=== PATIENT | male | born 1975 | race African-American/Black ===

== ENCOUNTER 2025-01-14 11:28 | Inpatient (IN) | payer OTHER ==
[2025-01-14] VITALS (27 sets, daily range): BP systolic 110–137; BP diastolic 73–91; PULSE 59–79; RESP 12–24; TEMP 36.4–37.1; O2SAT 96–98
[~2025-01-14] VITALS: Ht 185.4 cm; Wt 90.4 kg
[2025-01-14] MEDS ORDERED: HEPARIN 1000 UNITS/ML 10ML ONE ×2 (11:48→12:29)
[2025-01-14] MEDS ORDERED: LIDOCAINE HCL 1% 20ML VIAL ONE (11:48)
[2025-01-14] MEDS ORDERED: EPINEPHRINE 0.1MG/ML (1:10,000) 10ML SYR ONE (11:48)
[2025-01-14] MEDS ORDERED: HEPARIN 25,000 UNITS PREMIX 250 ML IV SCH (12:00)
[2025-01-14] MEDS ORDERED: HEPARIN BOLUS PRN aPTT 30-44 IV ×2 (12:00→18:00)
[2025-01-14] MEDS ORDERED: MIDAZOLAM HCL 2 MG/2 ML VIAL ONE (12:00)
[2025-01-14] MEDS ORDERED: FENTANYL CITRATE/PF 50MCG/ML 2ML VIAL ONE (12:00)
[2025-01-14] MEDS ORDERED: HEPARIN 60 UNITS/KG BOLUS IV SCH (12:00)
[2025-01-14] MEDS ORDERED: HEPARIN 25,000 UNITS PREMIX 250 ML IV PRN (12:00)
[2025-01-14] MEDS ORDERED: HEPARIN BOLUS PRN aPTT <30 IV ×2 (12:00→18:00)
[2025-01-14] MEDS ORDERED: ATROPINE SULFATE 1MG/10ML SYR ONE (12:05)
[2025-01-14] MEDS ORDERED: EPTIFIBATIDE 2 MG/ML 10ML VIAL IV ONE (12:33)
[2025-01-14 12:38] LABS: BASOPHILS % 0.3 % (0.0-2.0); EOSINOPHILS % 0.6 % (0.0-5.0); HEMATOCRIT. 43.2 % (42.0-52.0); HEMOGLOBIN. 14.7 g/dL (14.0-18.0); LYMPHOCYTES % 11.7 % (20.0-50.0); MEAN CORPUSCULAR HEMOGLOBIN 31.1 pg (28.0-32.0); MEAN CORPUSCULAR HGB CONC 34.1 g/dL (31.0-37.0); MEAN CORPUSCULAR VOLUME 91.2 fL (80.0-94.0); MEAN PLATELET VOLUME 9.1 fl (7.4-10.4); MONOCYTES % 8.1 % (2.0-8.0); NEUTROPHILS % 79.3 % (40.0-76.0); PLATELET 257 x1000/uL (130-400); RED BLOOD CELL COUNT 4.74 mill/uL (4.7-6.1); RED CELL DISTRIBUTION WIDTH 13.4 % (11.6-14.6); WHITE BLOOD COUNT 11.9 x1000/uL (4.5-11.0)
[2025-01-14] MEDS ORDERED: CLOPIDOGREL 75MG TABLET ONE (12:46)
[2025-01-14 12:48] LABS: INR 0.9; PROTHROMBIN TIME 10.2 sec (9.6-11.0)
[2025-01-14] MEDS ORDERED: IODIXANOL 320 MG/ML 150ML BOTTLE IV ONE (12:54)
[2025-01-14 12:55] LABS: CHLORIDE 103 mEq/L (98-107); POTASSIUM 3.8 mEq/L (3.5-5.1); SODIUM 137 mEq/L (136-145)
[2025-01-14 12:56] LABS: CALCIUM 9.5 mg/dL (8.7-10.4); CARBON DIOXIDE 22 mEq/L (21-32)
[2025-01-14 13:01] LABS: GLUCOSE 157 mg/dL (70-105); UREA NITROGEN BLOOD 8 mg/dL (9-23)
[2025-01-14] MEDS ORDERED: TICAGRELOR 90 MG TABLET PO ONE ×2 (13:13→13:27)
[2025-01-14 13:20] LABS: TROPONIN I HIGH SENSITIVITY 86 ng/L (3.0-53)
[2025-01-14] MEDS ORDERED: IPRATROPIUM/ALBUTEROL 0.5-3(2.5)MG/3ML NEB HHN PRN (14:00)
[2025-01-14] MEDS ORDERED: DOCUSATE SODIUM 100MG CAPSULE PO PRN (14:00)
[2025-01-14] MEDS ORDERED: ACETAMINOPHEN 325MG TABLET PO PRN ×2 (14:00)
[2025-01-14] MEDS ORDERED: GUAIFENESIN 200MG/10ML SUGAR FREE UDC PO PRN (14:00)
[2025-01-14] MEDS ORDERED: ONDANSETRON HCL 4MG/2ML INJ IV PRN (14:00)
[2025-01-14] MEDS ORDERED: MAGNESIUM/ALUMINUM HYDROXIDE/SIMETHICONE 30ML UDC PO PRN (14:00)
[2025-01-14] MEDS ORDERED: CLONIDINE 0.1MG TABLET PO PRN (14:00)
[2025-01-14] MEDS ORDERED: DEXTROSE 50% WATER 50ML SYRINGE IV PRN (14:00)
[2025-01-14] MEDS ORDERED: NALOXONE HCL 0.4MG/ML VIAL IV PRN (15:00)
[2025-01-14] MEDS ORDERED: CARVEDILOL 3.125 MG TABLET PO SCH (15:00)
[2025-01-14] MEDS ORDERED: LISINOPRIL 2.5MG TABLET PO SCH (15:00)
[2025-01-14] MEDS: TICAGRELOR 90 MG TABLET PO SCH (15:52)
[2025-01-14] MEDS: PANTOPRAZOLE SODIUM 40 MG/VIAL IV SCH (15:55)
[2025-01-14] MEDS: HYDROCODONE/ACETAMINOPHEN 5/325MG TABLET PO PRN (15:55)
[2025-01-14] MEDS: BLOOD SUGAR DIAGNOSTIC STRIP TEST SCH (17:44)
[2025-01-14] MEDS: LISINOPRIL 2.5MG TABLET PO SCH (17:48)
[2025-01-14] MEDS: CARVEDILOL 3.125 MG TABLET PO SCH (17:48)
[2025-01-14] MEDS: INSULIN LISPRO 100 UNITS/ML SUBCUT SCH (17:48)
[2025-01-14 19:27] LABS: CREATINE KINASE 1129 IU/L (46-171)
[2025-01-14 19:53] LABS: TROPONIN I HIGH SENSITIVITY 45102 ng/L (3.0-53)
[2025-01-14] MEDS: ATORVASTATIN CALCIUM 40MG TABLET PO SCH (21:09)
[2025-01-14 23:59] LABS: CREATINE KINASE 1041 IU/L (46-171)
[2025-01-15] VITALS (75 sets, daily range): BP systolic 112–156; BP diastolic 66–116; PULSE 55–76; RESP 10–23; TEMP 36.8; O2SAT 96–100
[2025-01-15 00:48] LABS: TROPONIN I HIGH SENSITIVITY > 25000 ng/L (3.0-53)
[2025-01-15 06:24] LABS: BASOPHILS % 0.2 % (0.0-2.0); EOSINOPHILS % 0.9 % (0.0-5.0); HEMATOCRIT. 38.4 % (42.0-52.0); HEMOGLOBIN. 13.4 g/dL (14.0-18.0); LYMPHOCYTES % 10.1 % (20.0-50.0); MEAN CORPUSCULAR HEMOGLOBIN 32.4 pg (28.0-32.0); MEAN CORPUSCULAR HGB CONC 34.9 g/dL (31.0-37.0); MEAN CORPUSCULAR VOLUME 92.8 fL (80.0-94.0); MONOCYTES % 10.2 % (2.0-8.0); NEUTROPHILS % 78.6 % (40.0-76.0); PLATELET 200 x1000/uL (130-400); RED BLOOD CELL COUNT 4.14 mill/uL (4.7-6.1); RED CELL DISTRIBUTION WIDTH 13.4 % (11.6-14.6); WHITE BLOOD COUNT 8.9 x1000/uL (4.5-11.0)
[2025-01-15 06:55] LABS: CHLORIDE 104 mEq/L (98-107); SODIUM 137 mEq/L (136-145)
[2025-01-15 06:56] LABS: CARBON DIOXIDE 24 mEq/L (21-32)
[2025-01-15 07:01] LABS: CREATININE 0.9 mg/dL (0.6-1.3); GLUCOSE 106 mg/dL (70-105); TRIGLYCERIDE 322 mg/dL (0-150); UREA NITROGEN BLOOD 8 mg/dL (9-23)
[2025-01-15 07:02] LABS: ALANINE AMINOTRANSFERASE 37 IU/L (10-49); ASPARTATE AMINOTRANSFERASE 128 IU/L (<34); LDL CHOLESTEROL 139 mg/dL (5-100)
[2025-01-15 07:03] LABS: ALBUMIN 3.8 g/dL (3.2-4.8); BILIRUBIN TOTAL 1.1 mg/dL (0.1-1.0); CHOLESTEROL 226 mg/dL (<200); HDL CHOLESTEROL 34 mg/dL (>55); PROTEIN TOTAL 6.6 g/dL (6.0-8.3)
[2025-01-15 07:05] LABS: T4 FREE 1.08 ng/dL (0.89-1.76); THYROID STIMULATING HORMONE 1.97 uIU/mL (0.55-4.78)
[2025-01-15] MEDS: ASPIRIN 81MG TABLET PO SCH (08:36)
[2025-01-15] MEDS ORDERED: PANTOPRAZOLE SODIUM 40 MG/VIAL IV SCH (09:00)
[2025-01-15 18:57] LABS: HEMATOCRIT 42.5 % (42.0-52.0); HEMOGLOBIN 14.4 g/dL (14.0-18.0); MEAN CORPUSCULAR HGB CONC 33.9 g/dL (31.0-37.0); MEAN CORPUSCULAR VOLUME 91.5 fL (80.0-94.0); PLATELET 206 x1000/uL (130-400); RED BLOOD CELL COUNT 4.64 mill/uL (4.7-6.1); RED CELL DISTRIBUTION WIDTH 13.5 % (11.6-14.6); WHITE BLOOD COUNT 7.9 x1000/uL (4.5-11.0)
[2025-01-15 19:07] LABS: CHLORIDE 105 mEq/L (98-107); POTASSIUM 3.8 mEq/L (3.5-5.1); SODIUM 140 mEq/L (136-145)
[2025-01-15 19:08] LABS: CALCIUM 9.4 mg/dL (8.7-10.4); CARBON DIOXIDE 25 mEq/L (21-32)
[2025-01-15 19:13] LABS: CREATININE 0.9 mg/dL (0.6-1.3); GLUCOSE 93 mg/dL (70-105); TRIGLYCERIDE 317 mg/dL (0-150); UREA NITROGEN BLOOD 7 mg/dL (9-23)
[2025-01-15 19:14] LABS: LDL CHOLESTEROL 143 mg/dL (5-100)
[2025-01-15 19:15] LABS: ALANINE AMINOTRANSFERASE 39 IU/L (10-49); ALBUMIN 4.3 g/dL (3.2-4.8); ASPARTATE AMINOTRANSFERASE 99 IU/L (<34); BILIRUBIN TOTAL 1.1 mg/dL (0.1-1.0); CHOLESTEROL 237 mg/dL (<200); HDL CHOLESTEROL 35 mg/dL (>55); PROTEIN TOTAL 7.4 g/dL (6.0-8.3)
[2025-01-15 19:22] LABS: TROPONIN I HIGH SENSITIVITY 16248 ng/L (3.0-53)
[2025-01-15] MEDS ORDERED: MELATONIN 3MG TABLET PO PRN (22:00)
[2025-01-16] VITALS: BP 105/72; PULSE 62; RESP 18; TEMP 36.4; O2SAT 96
[2025-01-16 04:00] VITALS: BP 103/80; PULSE 63; RESP 14; TEMP 36.6; O2SAT 98
[2025-01-16 06:23] LABS: BASOPHILS % 0.5 % (0.0-2.0); EOSINOPHILS % 1.2 % (0.0-5.0); HEMATOCRIT. 40.1 % (42.0-52.0); HEMOGLOBIN. 14.2 g/dL (14.0-18.0); LYMPHOCYTES % 12.4 % (20.0-50.0); MEAN CORPUSCULAR HEMOGLOBIN 32.6 pg (28.0-32.0); MEAN CORPUSCULAR HGB CONC 35.4 g/dL (31.0-37.0); MEAN PLATELET VOLUME 8.5 fl (7.4-10.4); MONOCYTES % 11.6 % (2.0-8.0); NEUTROPHILS % 74.3 % (40.0-76.0); PLATELET 188 x1000/uL (130-400); RED BLOOD CELL COUNT 4.36 mill/uL (4.7-6.1); RED CELL DISTRIBUTION WIDTH 13.4 % (11.6-14.6); WHITE BLOOD COUNT 8.8 x1000/uL (4.5-11.0)
[2025-01-16 06:31] LABS: CHLORIDE 103 mEq/L (98-107); POTASSIUM 4.1 mEq/L (3.5-5.1); SODIUM 136 mEq/L (136-145)
[2025-01-16 06:32] LABS: CALCIUM 9.2 mg/dL (8.7-10.4); CARBON DIOXIDE 25 mEq/L (21-32)
[2025-01-16 06:37] LABS: GLUCOSE 103 mg/dL (70-105); UREA NITROGEN BLOOD 7 mg/dL (9-23)
[2025-01-16 06:39] LABS: ALANINE AMINOTRANSFERASE 34 IU/L (10-49); ALBUMIN 4.2 g/dL (3.2-4.8); ASPARTATE AMINOTRANSFERASE 69 IU/L (<34); BILIRUBIN TOTAL 1.1 mg/dL (0.1-1.0); PROTEIN TOTAL 7.1 g/dL (6.0-8.3)
[2025-01-16 08:00] VITALS: BP 114/70; PULSE 69; RESP 12; TEMP 36.7; O2SAT 95
[2025-01-16 09:59] LABS: TROPONIN I HIGH SENSITIVITY 11558 ng/L (3.0-53)
[2025-01-16] MEDS ORDERED: COR3 PO (11:45)
[2025-01-16] MEDS ORDERED: TICA90TA PO (11:45)
[2025-01-16] MEDS ORDERED: ASPI-1160 PO (11:45)
[2025-01-16] MEDS ORDERED: LIP40 PO (11:45)
[2025-01-16] MEDS ORDERED: LISI2.5T47 PO (11:45)
[2025-01-16 12:00] VITALS: BP 103/65; PULSE 62; RESP 21; TEMP 36.6; O2SAT 97
[2025-01-16 14:14] VITALS: BP 103/65; PULSE 62; TEMP 97.8; O2SAT 97
== END 2025-01-16 14:30 | disposition home or self-care (01) | DRG 322 ==
LOC: ER 13:16 → CVICU 13:18 → 3WST 01-15 22:16
PROVIDERS: ADMIT Internal Medicine; ATTEND Internal Medicine
PROC: 4A023N7 Measurement of Cardiac Sampling and Pressure, Left Heart, Percutaneous Approach (ICD-10-PCS; principal; 2025-01-14)
PROC: 027135Z Dilation of Coronary Artery, Two Arteries with Two Drug-eluting Intraluminal Devices, Percutaneous Approach (ICD-10-PCS; 2025-01-14)
PROC: B241ZZ3 Ultrasonography of Multiple Coronary Arteries, Intravascular (ICD-10-PCS; 2025-01-14)
PROC: B211YZZ Fluoroscopy of Multiple Coronary Arteries using Other Contrast (ICD-10-PCS; 2025-01-14)
PROC: B215YZZ Fluoroscopy of Left Heart using Other Contrast (ICD-10-PCS; 2025-01-14)
PROC: B41FYZZ Fluoroscopy of Right Lower Extremity Arteries using Other Contrast (ICD-10-PCS; 2025-01-14)
DX: I21.19 ST elevation (STEMI) myocardial infarction involving other coronary artery of inferior wall (principal); I25.10 Atherosclerotic heart disease of native coronary artery without angina pectoris; R73.9 Hyperglycemia, unspecified; Z96.641 Presence of right artificial hip joint; E78.5 Hyperlipidemia, unspecified; K59.00 Constipation, unspecified; Z79.82 Long term (current) use of aspirin; I25.2 Old myocardial infarction; Z79.899 Other long term (current) drug therapy; Z82.49 Family history of ischemic heart disease and other diseases of the circulatory system
CPT/HCPCS: 36415; 71045; 80048; 80053; 80061; 82550; 82962; 83036; 83735; 83880; 84100; 84439; 84443; 84484; 85025; 85027; 85347; 92928; 92929; 93005; 93306; 93458; 93571; 93572; 93970; 99291; A4606; C1725; C1753; C1769; C1874; C1887; C1893; J0461; J1327; J1644; J2250; J2470; J3010; J3490; Q9967; J8499